=== PATIENT | male | born 1985 | race Caucasian/White ===

== ENCOUNTER 2023-04-02 14:39 | Outpatient (AMB) | payer OTHER, SELFPAY ==
[2023-04-02 16:12] VITALS: BP 160/80; PULSE 88; O2SAT 93
--- NOTE | 2023-04-02 16:12 | A.OFFVISCC_ITS ---
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 He has no children He reports he has been using opiates for 20+ years He started using with both of his parents who are now (DAISHA & AUD) His daily use is a couple of bundles heroin- IV Past hx of substance use includes: heroin, buprenorphine (7 yrs ago), methadone (street use), oxycodone, cocaine ( socially ), marijuana, and tobacco He denies ever sharing needles, gets them from the pharmacy He does not attend AA (not interested at this time) He is not interested in a kids activities coach at this time He has no providers Has previously been diagnosed for ADHD (not on meds) No hx of psych hospitalizations No hx of self injurious thoughts, SI, HI Allergic to bees, NKDA Had asthma in his childhood that has since resolved Past surgical hx of left hand fx repair Has previously been incarcerated and is curretly on probation Has no pending court cases His tx goals are to stop his use entirely Review of Systems Const Reports as per HPI Physical Exam Vital Signs: Last Vital Signs Pulse 88 04/02/23 16:12 BP 160/80 H 04/02/23 16:12 Pulse Ox 93 04/02/23 16:12 Const General: cooperative and no acute distress Nutritional Appearance: thin Resp Effort & Inspection: normal respiratory effort and able to speak in complete sentences Psych Appearance: grossly normal and disheveled Mental Status: mental status grossly normal Speech and movement: Normal speech and movement present Affect: normal affect Attitude: cooperative and Guarded attititude/behavior present Assessment & Plan Assessment & Plan (1) Opiate dependence: Code(s): F11.20 - Opioid dependence, uncomplicated Plan: -Start microdose induction, pt provided with written instructions -Comfort meds ordered, hydroxyzine & cyclobenzaprine -Pt provided with narcan and instructed on use -Follow up 1 week -Nurse to check in with pt periodically this week and next Orders: Orders AMB 14 Panel Urine Drug Screen 04/02/23 F11.20 - Opioid dependence, uncomplicated Medications: New buprenorphine-naloxone 8-2 mg To be taken after induction with 2mg films 1 film buccal DAILY 4 ea 0RF cyclobenzaprine 10 mg PO TID PRN 21 tabs 0RF muscle spasm ondansetron 4 mg PO Q8H 21 tabs 0RF hydroxyzine HCl 25 mg PO TID PRN 30 tabs 0RF itching buprenorphine-naloxone 2-[address] 1 strip/tab under (each) side of tongue 1 film buccal DAILY 10 ea 0RF Coding Level of Care Code New Pt Level 4 (43701) Diagnoses Opiate dependence F11.20
== END 2023-04-02 16:23 | disposition home or self-care (01) ==
PROVIDERS: Visit Provider Nurse Practitioner Family
DX: F11.20 Opioid dependence, uncomplicated (principal)
CPT/HCPCS: 99204

== ENCOUNTER → 2023-04-02 14:39 | Outpatient (BNVA) | payer OTHER, SELFPAY | PROVIDERS: Visit Provider Nurse Practitioner Family | DX: F11.20 Opioid dependence, uncomplicated (principal) | CPT/HCPCS: 80305; 99202 ==

== ENCOUNTER 2023-04-11 15:41 | Outpatient (AMB) | payer OTHER, SELFPAY ==
--- NOTE | 2023-04-11 15:43 | MHC.AM.SUB ---
Intake Vital Signs 04/11/23 15:49 BP 140/80 H Blood Pressure Location Rt radial Position Sitting Respiration 19 Pulse 63 Pulse Oximetry (%) 98 Intake Visit Reasons: mat visit Allergies No Known Allergies Allergy (Unverified 11/13/19 16:04) HPI mat visit HPI Details Patient presents for DAISHA treatment and follow up He reports having difficulty sticking to the plan for microdosing induction Has been taking his suboxone films daily since Sunday. He reports he took 2mg Sunday, 2mg Sat, 2mg Sun, 2mg Sun, 6mg , and 2mg yesterday morning He reports feeling transient withdrawal symptoms Review of Systems Const Reports as per HPI Physical Exam Vital Signs: Last Vital Signs Pulse 63 04/11/23 15:49 Resp 19 04/11/23 15:49 BP 140/80 H 04/11/23 15:49 Pulse Ox 98 04/11/23 15:49 Const General: cooperative and no acute distress Resp Effort & Inspection: normal respiratory effort Psych Appearance: disheveled Mental Status: mental status grossly normal Speech and movement: Normal speech and movement present Affect: Sad affect present Attitude: cooperative Assessment & Plan Assessment & Plan (1) Opiate dependence: Code(s): F11.20 - Opioid dependence, uncomplicated Plan: -Discussed with patient ramping up his dose to macrodose to finish transition from fentanyl to buprenorphine -Clonidine sent to pharmacy, med education provided -Harm reduction discussed -Reviewed recovery supports -Requested him to call office tomorrow afternoon to check in -Follow up 1 week Medications: New clonidine HCl 0.1 mg PO TID 21 tabs 0RF Changed From buprenorphine-naloxone 8-2 mg To be taken after induction with 2mg films 1 film buccal DAILY 4 ea 0RF To buprenorphine-naloxone 8-2 mg 1 film buccal DAILY 24 ea 0RF Refilled cyclobenzaprine 10 mg PO TID PRN 21 tabs 0RF muscle spasm Discontinued buprenorphine-naloxone 2-[address] 1 strip/tab under (each) side of tongue Discontinued Reason: None 1 film buccal DAILY 10 ea 0RF Coding Level of Care Code Est Pt Level 4 (56862) Diagnoses Opiate dependence F11.20 Time Spent (min) 40 Comment Spent with patient, chart review, and documentation
[2023-04-11 15:49] VITALS: BP 140/80; PULSE 63; RESP 19; O2SAT 98
== END 2023-04-11 16:50 | disposition home or self-care (01) ==
PROVIDERS: Visit Provider Nurse Practitioner Family
DX: F11.20 Opioid dependence, uncomplicated (principal)
CPT/HCPCS: 99214

== ENCOUNTER → 2023-04-11 15:41 | Outpatient (BNVA) | payer OTHER, SELFPAY | PROVIDERS: Visit Provider Nurse Practitioner Family | DX: F11.20 Opioid dependence, uncomplicated (principal) | CPT/HCPCS: 99212 ==

== ENCOUNTER 2023-04-17 16:00 | Outpatient (REF) | payer OTHER, SELFPAY ==
[2023-04-17 16:15] LABS: MANUAL DIFF FLAG NO
[2023-04-17 16:53] LABS: Basophils Absolute Auto 0.1 X10*3/uL (0.0-0.2); Basophils Percent Auto 0.5 % (0-2); Eosinophils Absolute Auto 0.1 X10*3/uL (0.0-0.4); Eosinophils Percent Auto 1.3 % (0-4); Hematocrit 42.9 % (42.0-52.0); Hemoglobin 13.9 g/dl (14.0-18.0); Imm Gran Abs Auto 0.04 X10*3/uL (0.00-0.03); Imm Gran Pct Auto 0.4 % (0.0-0.4); Lymphocytes Absolute Auto 1.8 X10*3/uL (1.2-4.9); Lymphocytes Percent Auto 17.4 % (20-40); Mean Corpuscular HGB Conc 32.4 g/dl (31.0-36.0); Mean Corpuscular Hemoglobin 27.3 pg (27.0-33.0); Mean Corpuscular Volume 84.3 fL (80.0-98.0); Mean Platelet Volume 9.1 fL (9.4-12.4); Monocytes Absolute Auto 0.9 X10*3/uL (0.1-1.2); Monocytes Percent Auto 8.4 % (2-11); Neutrophils Absolute Auto 7.5 x10*3/uL (2.0-8.3); Platelet Count 406 X10*3/uL (160-400); Red Blood Count 5.09 X10*6/uL (4.60-5.80); Red Cell Distribution Width 12.1 % (11.0-16.0); White Blood Count 10.4 X10*3/uL (4.8-10.8)
[2023-04-17 17:17] LABS: Alanine Aminotransferase 9 U/L (0-40); Albumin Level 4.2 g/dL (3.5-5.0); Alkaline Phosphatase 115 U/L (39-117); Anion Gap 17 (12-20); Aspartate Amino Transferase 13 U/L (5-37); Bilirubin Total 0.4 mg/dL (0.0-1.0); Blood Urea Nitrogen 11 mg/dL (9-16); Carbon Dioxide 25 mmol/L (22-29); Chloride 102 mmol/L (96-108); Estimated Glomerular Filt Rate > 60; Glucose Random 130 mg/dL (60-115); Potassium 3.9 mmol/L (3.3-5.1); Sodium 140 mmol/L (135-145); Total Protein 9.1 g/dL (6.5-8.0)
[2023-04-18 02:39] LABS: HBS Num1 207.81 mIU/mL (0-7.99); HBc Num1 0.18 S/CO (0.00-0.79); HBsAGNum1 0.55 S/CO (0.00-0.99); Hepatitis A Antibody IgM 0.29 Index (0-0.79); Hepatitis B Core Antibody Nonreactive (Nonreactive); Hepatitis B Surface Antigen Negative (Negative); ~HepC Num1 0.28 S/CO (0.00-0.79); ~Hepatitis A Antibody IgM Nonreactive (Nonreactive); ~Hepatitis B Surface Antibody REACTIVE (Nonreactive); ~Hepatitis C Antibody Nonreactive (Nonreactive)
== END 2023-04-17 16:01 | disposition home or self-care (01) ==
LOC: HO.LAB 16:00
PROVIDERS: Visit Provider Nurse Practitioner Family
DX: F11.20 Opioid dependence, uncomplicated (principal)
CPT/HCPCS: 36415; 80053; 85025; 86704; 86706; 86709; 86803; 87340; 99212

== ENCOUNTER 2023-04-17 16:17 | Outpatient (AMB) | payer OTHER, SELFPAY ==
--- NOTE | 2023-04-17 16:25 | MHC.AM.SUB ---
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 He reports he has been experiencing cravings. Review of Systems Const Reports as per HPI, Reports anorexia, Reports difficulty sleeping, Reports lethargy and Reports poor appetite Physical Exam Vital Signs: Last Vital Signs Pulse 79 04/17/23 16:26 BP 122/86 04/17/23 16:26 Pulse Ox 94 04/17/23 16:26 Oxygen Delivery Method Room Air 04/17/23 16:26 Const General: cooperative and no acute distress Nutritional Appearance: thin Resp Effort & Inspection: normal respiratory effort Psych Appearance: grossly normal Mental Status: mental status grossly normal Speech and movement: Normal speech and movement present Affect: normal affect Attitude: cooperative Thought process: Normal thought process present Assessment & Plan Assessment & Plan (1) Opiate dependence: Code(s): F11.20 - Opioid dependence, uncomplicated Qualifiers: Substance use status: uncomplicated Qualified Code(s): F11.20 - Opioid dependence, uncomplicated Plan: -Discussed with him taking 4mg BID, unclear at this time if lightheadedness is due to suboxone or clonidine. -Reviewed he can call the office this week if he feels 4mg bid is not enough. 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 Panel Today - Opioid dependence, uncomplicated Medications: New mirtazapine 7.5 mg PO BEDTIME 7 tabs 0RF buprenorphine-naloxone 4-[address] 1 strip/tab under (each) side of tongue 1 film buccal Q24H 14 ea 0RF Discontinued buprenorphine-naloxone 8-2 mg Discontinued Reason: Patient Completed Course 1 film buccal DAILY 24 ea 0RF Coding Level of Care Code Est Pt Level 3 (39963) Diagnoses Uncomplicated opioid dependence Substance use status: uncomplicated
[2023-04-17 16:26] VITALS: BP 122/86; PULSE 79; O2SAT 94
== END 2023-04-17 17:28 | disposition home or self-care (01) ==
PROVIDERS: Visit Provider Nurse Practitioner Family
DX: F11.20 Opioid dependence, uncomplicated (principal)
CPT/HCPCS: 99213

== ENCOUNTER 2023-04-24 14:18 | Outpatient (AMB) | payer OTHER, SELFPAY ==
--- NOTE | 2023-04-24 14:21 | A.OFFVISCC_ITS ---
Intake Vital Signs 04/24/23 14:41 BP 100/60 Blood Pressure Location Rt brachial Position Sitting Respiration 19 Pulse 89 Pulse Source Pulse Oximeter Pulse Oximetry (%) 99 Intake Visit Reasons: MAT Visit Allergies No Known Allergies Allergy (Unverified 04/17/23 16:26) HPI MAT Visit HPI Details Patient presents for DAISHA treatment and follow up Reports he used substances last , and then again on Sunday Expressing shame over this, processed with pt He reports he has been taking the suboxone every day, different amounts every day He reports poor tolerance to the films (nausea, sublingual irritation) He did not take the mirtapizpine prescrbed to him for sleep- reports he read up on the side effects and got scared Endorsing poor appetite and continued poor sleep Review of Systems Const Reports as per HPI Physical Exam Vital Signs: Last Vital Signs Pulse 89 04/24/23 14:41 Resp 19 04/24/23 14:41 BP 100/60 04/24/23 14:41 Pulse Ox 99 04/24/23 14:41 Const General: cooperative and no acute distress Resp Effort & Inspection: normal respiratory effort Psych Appearance: grossly normal Mental Status: mental status grossly normal Speech and movement: Normal speech and movement present Affect: Sad affect present Attitude: cooperative Thought content: suicidality, no homicidality and Depressive thoughts present Assessment & Plan Assessment & Plan (1) Opiate dependence: Code(s): F11.20 - Opioid dependence, uncomplicated Qualifiers: Substance use status: uncomplicated Qualified Code(s): F11.20 - Opioid dependence, uncomplicated Plan: -Mirtazapine d/c, new script for trazodone sent. Med education provided, he reports he has previously taken with good effect -Mass pat reviewed -Harm reduction discussion -Continue suboxone 2mg tid, trial suboxone tablets to assess for better nancie ance -Follow up 1 week Medications: New trazodone 50 mg PO BEDTIME PRN 14 tabs 0RF sleep buprenorphine-naloxone 2-0.5 mg 1 tab sublingual TID 21 tabs 0RF Discontinued mirtazapine Discontinued Reason: None 7.5 mg PO BEDTIME 7 tabs 0RF Coding Level of Care Code Est Pt Level 3 (58112) Diagnoses Uncomplicated opioid dependence F11.20 Substance use status: uncomplicated
[2023-04-24 14:41] VITALS: BP 100/60; PULSE 89; RESP 19; O2SAT 99
== END 2023-04-24 15:28 | disposition home or self-care (01) ==
PROVIDERS: Visit Provider Nurse Practitioner Family
DX: F11.20 Opioid dependence, uncomplicated (principal)
CPT/HCPCS: 99213

== ENCOUNTER → 2023-04-24 14:18 | Outpatient (BNVA) | payer OTHER, SELFPAY | PROVIDERS: Visit Provider Nurse Practitioner Family | DX: F11.20 Opioid dependence, uncomplicated (principal) | CPT/HCPCS: 99212 ==

== ENCOUNTER 2023-04-30 12:59 | Outpatient (AMB) | payer OTHER, SELFPAY ==
--- NOTE | 2023-04-30 15:47 | MHC.AM.SUB ---
Intake Intake Visit Reasons: mat visit Allergies No Known Allergies Allergy (Unverified 04/17/23 16:26) HPI mat visit HPI Details Patient presents for MAT visit via telehealth Reports he continues to experience profound nausea and wobbly feeling in his head when taking his suboxone films, as a result of this he reports he used 4 days in a row last week: 40bags spaced over the 4 days. 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 Review of Systems Const Reports as per HPI and Reports poor appetite Assessment & Plan Assessment & Plan (1) Opiate dependence: Code(s): F11.20 - Opioid dependence, uncomplicated Qualifiers: Substance use status: uncomplicated Qualified Code(s): F11.20 - Opioid dependence, uncomplicated Plan: -Discussed with him taking small amounts of suboxone at a time until he is able to tolerate, encouraged him to call clinic if he experiences unwanted side effects so another plan can be made -Discussed with him taking zofran prior to taking suboxone -Follow up 1 week -RN to call mid-week to check in with patient Telehealth Telehealth Location of provider rendering services: practice address Location of patient: address on file Patient Identification confirmed using: Name, : Yes Telehealth method: voice only Patient verbally consented to treatment: Yes Patient verbally consented to billing insurance company: Yes Patient informed of any privacy concerns related to visit: Yes Minutes spent on Phone/Video with Pt.: 45 Coding Level of Care Code Tele Est Pt Level 3 (14147) Diagnoses Uncomplicated opioid dependence F11.20 Substance use status: uncomplicated
== END 2023-04-30 14:15 | disposition home or self-care (01) ==
LOC: HO.HCC 12:59
PROVIDERS: Visit Provider Nurse Practitioner Family
DX: F11.20 Opioid dependence, uncomplicated (principal)
CPT/HCPCS: 99213

== ENCOUNTER → 2023-04-30 12:59 | Outpatient (BNVA) | payer OTHER, SELFPAY | PROVIDERS: Visit Provider Nurse Practitioner Family ==